=== PATIENT | female | born 1965 | race Hispanic/Latino ===

== ENCOUNTER 2016-09-10 01:06 | Emergency (ER) | payer OTHER ==
[~2016-09-10] VITALS: Ht 160 cm; Wt 58.6 kg
[2016-09-10 01:51] LABS: EOSINOPHIL (%) 2.8 % (0-5); EOSINOPHIL COUNT 0.3 K/uL (0-0.3); HEMATOCRIT 32.9 % (36.0-46.0); IMMATURE GRANULOCYTE (%) 0.3 % (0.0-0.7); INSTRUMENT ABS NEUTROPHIL CT 6.1 K/uL; LYMPHOCYTE COUNT 3.8 K/uL (1.0-2.8); MCH 28.6 PG (29.0-34.0); MCHC 32.8 G/DL (30.0-36.0); MCV 87.3 FL (83-99); MEAN PLAT.VOLUME 11.6 uM^3 (9.5-12.4); MONOCYTE (%) 5.5 % (3-12); MONOCYTE COUNT 0.6 K/uL (0-0.8); NEUTROPHIL (%) 56.1 % (45-76); NEUTROPHIL COUNT 6.1 K/uL (1.8-6.4); PLATELET COUNT 189 K/uL (156-360); RBC DIS.WIDTH-CV 13.1 % (11.8-14.6); RED BLOOD COUNT 3.77 M/uL (3.80-5.20); WHITE BLOOD COUNT 10.8 K/uL (4.1-10.2)
[2016-09-10 02:06] LABS: CHLORIDE 107 mEq/L (99-109); POTASSIUM 3.3 mEq/L (3.7-5.4); SODIUM 137 mEq/L (136-147)
[2016-09-10 02:08] LABS: GLUCOSE 166 mg/dL (70-99)
[2016-09-10 02:09] LABS: ANION GAP 11 MEQ/L (2-14)
[2016-09-10 02:12] LABS: GFR ESTIMATE (CALCULATED) > 59 mL/min/
[2016-09-10 02:13] LABS: UREA NITROGEN (BUN) 18 mg/dL (9-23)
[2016-09-10 02:19] LABS: TROP-I INTERPRETATION NEGATIVE; TROPONIN-I < 0.01 ng/mL (0.0-0.30)
[2016-09-10] MEDS ORDERED: ZOFRAN4 MG PO (04:57)
[2016-09-10] MEDS ORDERED: BONINE25 MG PO (04:57)
[2016-09-10 05:15] VITALS: BP 123/74
== END 2016-09-10 05:15 | disposition home or self-care (01) ==
LOC: EME → EDBD 01:06 → EME 05:15
PROVIDERS: Emergency Medicine
DX: R42 Dizziness and giddiness (principal); R73.9 Hyperglycemia, unspecified; R11.2 Nausea with vomiting, unspecified
CPT/HCPCS: 70450; 80048; 84484; 85025; 93005; 99281; 99285; J1100; J2405; J2765; J7030